=== PATIENT | male | born 1950 | race Caucasian/White ===

== ENCOUNTER 2018-04-21 11:06 | Inpatient (IN) ==
[2018-04-21] MEDS ORDERED: SODIUM CHLORIDE 0.9% 1000ML 1,000 ML IV SCH (11:45)
[2018-04-21 11:54] LABS: Appearance Urine Clear (Clear); Bilirubin Urine Negative (Negative); Blood Urine Negative (Negative); Color Urine Yellow; Glucose Urine UA Negative (Negative); Ketones Urine 1+ (Negative); Leukocyte Esterase Urine Negative (Negative); Nitrite Urine Negative (Negative); Protein Urine Negative (Negative); Specific Gravity Urine 1.022 (1.000-1.030); Urobilinogen Urine Negative (Negative); pH Urine 8.5 (4.5-7.5)
[2018-04-21 11:55] LABS: Basophils # (auto) 0.02 K/uL (0-0.2); Basophils % (auto) 0.2 %; Eosinophils # (auto) 0.01 K/uL (0-0.5); Eosinophils % (auto) 0.1 %; Hematocrit (blood only) 44.3 % (42-52); Hemoglobin 15.4 g/dL (14.0-18.0); Immature Granulocytes # (auto) 0.02 K/uL (0.00-0.02); Immature Granulocytes % (auto) 0.2 %; Lymphocytes # (auto) 0.62 K/uL (1.2-3.4); Lymphocytes % (auto) 5.6 %; Mean Corpuscular Hgb Conc 34.8 g/dL (32-36); Mean Corpuscular Volume 84.1 fL (80-100); Mean Platelet Volume 10.1 fL (7.4-10.4); Monocytes % (auto) 4.5 %; Neutrophils # (auto) 9.92 K/uL (1.4-6.5); Neutrophils % (auto) 89.4 %; Platelet Count 258 K/uL (130-400); RDW Coefficient of Variation 13.4 % (11.5-14.5); RDW Standard Deviation 40.9 fL (36.4-46.3); Red Blood Count 5.27 M/uL (4.7-6.1); White Blood Count 11.09 K/uL (4.8-10.8)
--- NOTE | 2018-04-21 12:06 | Emergency Department Note ---
Entered by Ladi Perdomo acting as a scribe for Sampson Rojas DO History of Present Illness General Chief complaint: Abdominal Pain Stated complaint: STOMACH PAIN Source: patient History of Present Illness Provider complaint: abdominal pain Onset (ago): hour(s) (0530 this morning) Location: abdomen Radiation: non-radiation Pain Consistency: + constant Maximum Pain Intensity: 5 Quality: + other (pain) Associated symptoms: + denies other symptoms (denies bloody urine) and + nausea/vomiting; no chest pain The patient is a 67 year old male who presents to the Emergency Room with complaints of constant abdominal pain beginning at 0530 this morning. He states that the patient does not radiate anywhere. He reports that he vomited 3 times and states that this did not alleviate his pain. The patient denies having any chest pain or bloody urine. He reports a history of atrial flutter and states that he takes a low dose Aspirin and states that this is the only medication he currently takes. The patient states that he was stopped on blood thinners and r eports that he had an ablation. The patient also reports a history of a bilateral knee surgery. He denies a history of an appendectomy or cholecystectomy. The patient states that he went to Urgent Care today. Home Medications Home Medications Medication Instructions Recorded Confirmed Type aspirin [Aspirin Low Dose] 81 mg PO DAILY 04/21/18 04/21/18 History Allergies Allergy/AdvReac Type Severity Reaction Status Date / Time tetanus toxoid, adsorbed Allergy Intermediate SYNCOPE Verified 04/21/18 18:30 Past Med/Surg History Social History Preferred Language: [place] Communication Ability: Effective Hospice Nurse Practitioner Required: No Beliefs That Will Affect Care: None Current Living Situation: Family Other Information That Helps Us Care for You: No Feels Safe at Home: Yes Smoking Status: Never smoker Hx Alcohol Use: Yes Hx Substance Use: No Review of Systems See HPI for pertinent positives & negatives. and A total of 10 systems reviewed and were otherwise negative Physical Exam Vital Signs Vital Signs - 24 hr 04/21/18 11:47 04/21/18 12:49 04/21/18 14:30 Temperature Temperature Source Pulse Rate Pulse Rate [Right Finger] 84 80 Pulse Rate from SpO2 Sensor Pulse Rhythm [Right Finger] Pulse Strength [Right Finger] Respiratory Rate 16 18 Respiratory Effort / Characteristics Non-Labored Non-Labored Respiratory Depth Normal Normal Respiratory Pattern Blood Pressure Blood Pressure [Left Arm] 137/67 148/89 H Blood Pressure Mean Blood Pressure Mean [Left Arm] 90 108 Blood Pressure Position [Left Arm] Pulse Oximetry 98 100 100 Oxygen Delivery Method Room Air Room Air Room Air Oxygen Flow Rate 04/21/18 15:05 04/21/18 16:55 04/21/18 16:56 Temperature 36.9 C 36.9 C Temperature Source Oral Temporal Artery Scan Pulse Rate 93 H 92 H Pulse Rate [Right Finger] 70 92 H Pulse Rate from SpO2 Sensor 103 H 93 H Pulse Rhythm [Right Finger] Regular Pulse Strength [Right Finger] Respiratory Rate 18 15 25 H Respiratory Effort / Characteristics Non-Labored Spontaneous Non-Labored Spontaneous Respiratory Depth Normal Normal Respiratory Pattern Regular Blood Pressure 94/83 L Blood Pressure [Left Arm] 143/84 H 133/74 Blood Pressure Mean 86 Blood Pressure Mean [Left Arm] 103 93 Blood Pressure Position [Left Arm] Semi-fowlers Lying Pulse Oximetry 99 100 100 Oxygen Delivery Method Oxymask Oxygen Flow Rate 10 04/21/18 16:57 04/21/18 17:00 04/21/18 17:01 Temperature Temperature Source Pulse Rate 89 85 86 Pulse Rate [Right Finger] Pulse Rate from SpO2 Sensor 88 87 85 Pulse Rhythm [Right Finger] Pulse Strength [Right Finger] Respiratory Rate 16 24 15 Respiratory Effort / Characteristics Respiratory Depth Respiratory Pattern Blood Pressure 133/74 131/79 Blood Pressure [Left Arm] Blood Pressure Mean 93 96 Blood Pressure Mean [Left Arm] Blood Pressure Position [Left Arm] Pulse Oximetry 100 99 100 Oxygen Delivery Method Oxygen Flow Rate 04/21/18 17:05 04/21/18 17:10 04/21/18 17:15 Temperature Temperature Source Pulse Rate 81 76 75 Pulse Rate [Right Finger] Pulse Rate from SpO2 Sensor 82 76 75 Pulse Rhythm [Right Finger] Pulse Strength [Right Finger] Respiratory Rate 18 15 15 Respiratory Effort / Characteristics Respiratory Depth Respiratory Pattern Blood Pressure 126/71 126/73 Blood Pressure [Left Arm] Blood Pressure Mean 89 90 Blood Pressure Mean [Left Arm] Blood Pressure Position [Left Arm] Pulse Oximetry 100 100 99 Oxygen Delivery Method Oxygen Flow Rate 04/21/18 17:17 04/21/18 17:20 04/21/18 17:25 Temperature 37.2 C 37.2 C Temperature Source Temporal Artery Scan Pulse Rate 74 75 Pulse Rate [Right Finger] 73 Pulse Rate from SpO2 Sensor 74 75 Pulse Rhythm [Right Finger] Regular Pulse Strength [Right Finger] Respiratory Rate 16 11 L 16 Respiratory Effort / Characteristics Non-Labored Spontaneous Respiratory Depth Normal Respiratory Pattern Regular Blood Pressure 120/70 126/73 Blood Pressure [Left Arm] 125/69 Blood Pressure Mean 86 90 Blood Pressure Mean [Left Arm] 87 Blood Pressure Position [Left Arm] Lying Pulse Oximetry 98 98 98 Oxygen Delivery Method Nasal Cannula Nasal Cannula Oxygen Flow Rate 2 2 04/21/18 17:35 04/21/18 18:00 04/21/18 18:30 Temperature 37.2 C 36.9 C 36.7 C Temperature Source Oral Oral Pulse Rate 75 Pulse Rate [Right Finger] 72 75 Pulse Rate from SpO2 Sensor 75 Pulse Rhythm [Right Finger] Pulse Strength [Right Finger] Respiratory Rate 16 20 18 Respiratory Effort / Characteristics Non-Labored Spontaneous Non-Labored Spontaneous Respiratory Depth Normal Normal Respiratory Pattern Regular Regular Blood Pressure 126/73 Blood Pressure [Left Arm] 120/69 123/74 Blood Pressure Mean 90 Blood Pressure Mean [Left Arm] 86 90 Blood Pressure Position [Left Arm] Pulse Oximetry 98 93 94 Oxygen Delivery Method Nasal Cannula Nasal Cannula Room Air Oxygen Flow Rate 2 2 04/21/18 18:59 04/21/18 19:11 04/21/18 20:01 Temperature 36.6 C 36.5 C 36.7 C Temperature Source Oral Oral Oral Pulse Rate Pulse Rate [Right Finger] 73 66 68 Pulse Rate from SpO2 Sensor Pulse Rhythm [Right Finger] Pulse Strength [Right Finger] Respiratory Rate 20 17 16 Respiratory Effort / Characteristics Non-Labored Spontaneous Respiratory Depth Normal Normal Respiratory Pattern Regular Blood Pressure Blood Pressure [Left Arm] 129/73 135/79 137/60 Blood Pressure Mean Blood Pressure Mean [Left Arm] 91 97 85 Blood Pressure Position [Left Arm] Lying Lying Pulse Oximetry 95 94 95 Oxygen Delivery Method Room Air Room Air Room Air Oxygen Flow Rate 04/21/18 21:00 04/21/18 22:55 04/22/18 03:27 Temperature 36.7 C 36.5 C 36.6 C Temperature Source Oral Oral Oral Pulse Rate Pulse Rate [Right Finger] 86 85 86 Pulse Rate from SpO2 Sensor Pulse Rhythm [Right Finger] Regular Regular Pulse Strength [Right Finger] Normal Normal Respiratory Rate 18 16 16 Respiratory Effort / Characteristics Non-Labored Spontaneous Respiratory Depth Normal Normal Normal Respiratory Pattern Regular Blood Pressure Blood Pressure [Left Arm] 136/69 123/70 118/58 L Blood Pressure Mean Blood Pressure Mean [Left Arm] 91 87 78 Blood Pressure Position [Left Arm] Lying Lying Pulse Oximetry 95 96 96 Oxygen Delivery Method Room Air Room Air Room Air Oxygen Flow Rate 04/22/18 07:04 Temperature 36.9 C Temperature Source Oral Pulse Rate Pulse Rate [Right Finger] 56 L Pulse Rate from SpO2 Sensor Pulse Rhythm [Right Finger] Pulse Strength [Right Finger] Respiratory Rate 16 Respiratory Effort / Characteristics Respiratory Depth Respiratory Pattern Blood Pressure Blood Pressure [Left Arm] 138/72 Blood Pressure Mean Blood Pressure Mean [Left Arm] 94 Blood Pressure Position [Left Arm] Lying Pulse Oximetry 93 Oxygen Delivery Method Room Air Oxygen Flow Rate GENERAL: Patient is awake alert in no acute distress patient is resting c omfortably and showing no signs of anxiety EYES: The conjunctivae are clear. The pupils are round and reactive. EARS, NOSE, MOUTH AND THROAT: The nose is without any evidence of any deformity. Mucous membranes are moist tongue is midline NECK: The neck is nontender and supple. RESPIRATORY: Normal respiratory effort is noted there is no evidence of wheezing rhonchi or rales CARDIOVASCULAR: Regular rate and rhythm noted there no murmurs rubs or gallops normal S1 normal S2 GASTROINTESTINAL: The abdomen is nondistended and soft. There is significant epigastric supraumbilical and right upper quadrant tenderness to palpation. There is no guarding or rigidity. BACK: No midline tenderness or or step-off noted range of motion in flexion extension as well as rotation no signs of muscle spasm noted MUSCULOSKELETAL/EXTREMITIES: There is no evidence of gross deformity full range of motion is noted in the hips and shoulders SKIN: There is no obvious evidence of any rash. There are no petechiae, pallor or cyanosis noted. NEUROLOGIC: Patient is awake alert and oriented x3 strength is symmetric patellar reflexes are 2+ bilaterally Course 1153: Past medical records reviewed. The patient was evaluated in room A10, and a complete history and physical examination were performed. 1340: I updated the patient who verbalized agreement and understanding of the treatment plan. 1351: I discussed the patient's case with Aly Ramon PA-C General Surgery who said that he will see the patient. 1407: I spoke with Aly Ramon PA-C who said that he and Dr. Aragon will evaluate the patient for further management. Consultations Consultation #1: Aly Ramon PA-C General Surgery Time: 13:51 Administered Medications Aspirin (Ecotrin Ectab) 81 mg PO DAILY [place] Stop: 05/22/18 08:59 Last Admin: 04/22/18 09:19 Dose: 81 mg Documented by: [id number] Lactated Ringer's (Lr) 1,000 mls @ 125 mls/hr IV .Q8H [place] Stop: 05/21/18 19:17 Last Admin: 04/22/18 10:12 Dose: 125 mls/hr Documented by: [id number] Infusion: 04/22/18 10:08 Dose: 125 mls/hr Documented by: [id number] Infusion: 04/22/18 05:29 Dose: 125 mls/hr Documented by: [id number] Admin: 04/22/18 02:08 Dose: 125 mls/hr Documented by: [id number] Infusion: 04/22/18 02:08 Dose: 125 mls/hr Documented by: [id number] Admin: 04/21/18 19:24 Dose: 125 mls/hr Documented by: [id number] Discontinued Medications Bupivacaine HCl (Marcaine 0.5% Mpf) Confirm Administered Dose 30 ml .ROUTE .STK- MED ONE Stop: 04/21/18 15:39 Last Admin: 04/21/18 18:54 Dose: Not Given Documented by: [id number] Bupivacaine HCl/Epinephrine Bitart (Sensorcaine/Epinephrine 0.5% Mpf 1:200,000) Confirm Administered Dose 30 ml .ROUTE .STK-MED ONE Stop: 04/21/18 15:42 Last Admin: 04/21/18 16:32 Dose: 14 ml Documented by: [id number] Sodium Chloride (Nss 1000ml) 1,000 mls @ 999 mls/hr IV .Q1H1M [place] Stop: 04/21/18 12:45 Last Infusion: 04/21/18 12:51 Dose: 0 mls/hr Documented by: [id number] Admin: 04/21/18 11:50 Dose: 999 mls/hr Documented by: [id number] Lactated Ringer's (Lr) 1,000 mls @ 80 mls/hr IV .[id number] [place] Stop: 05/21/18 15:44 Last Infusion: 04/21/18 15:45 Dose: 0 mls/hr Documented by: [id number] Admin: 04/21/18 15:30 Dose: 80 mls/hr Documented by: [id number] Cefoxitin Sodium 2,000 mg/ (Dextrose) 60 mls @ 100 mls/hr IV ONCE STA Stop: 04/21/18 17:07 Last Infusion: 04/21/18 16:36 Dose: 0 mls/hr Documented by: [id number] Admin: 04/21/18 16:00 Dose: 100 mls/hr Documented by: [id number] Ioversol (Optiray 320 100ml) 94 ml IV ONCE PRN PRN Reason: Interaction Checking Stop: 04/25/18 12:45 Last Admin: 04/21/18 12:47 Dose: 94 ml Documented by: [id number] Morphine Sulfate (Morphine Sulfate) 4 mg IV Q15M PRN PRN Reason: Pain Stop: 05/05/18 12:31 Last Admin: 04/21/18 13:54 Dose: 4 mg Documented by: [id number] Admin: 04/21/18 13:37 Dose: 4 mg Documented by: [id number] Ondansetron HCl (Zofran) Confirm Administered Dose 4 mg .ROUTE .STK-MED ONE Stop: 04/21/18 12:31 Last Admin: 04/21/18 12:32 Dose: 4 mg Documented by: [id number] Ondansetron HCl (Zofran) 4 mg IV NOW STA Stop: 04/21/18 12:33 Last Admin: 04/21/18 13:37 Dose: Not Given Documented by: [id number] Ondansetron HCl (Zofran) 4 mg IV NOW STA Stop: 04/21/18 14:04 Last Admin: 04/21/18 14:04 Dose: 4 mg Documented by: [id number] Medical Decision Making Differential Diagnosis Differential diagnosis: Etiologies such as biliary colic, cholecystitis, hepatitis, pancreatitis, cardiac disease, pancreatitis, gastritis, peptic ulcer disease, appendicitis, cystitis, diverticulitis, mesenteric ischemia, inflammatory bowel disease, ileus, bowel obstruction, testicular torsion, aortic pathology, shingles, as well as others were considered. Medical Records Attestation: I reviewed the patient's medical records. Home Medications Current Medication List: was personally reviewed by me Laboratory Data Attestation: I reviewed the patient's lab results. Result diagrams: 04/22/18 07:02 04/22/18 07:02 Lab Results 04/21/18 04/21/18 04/21/18 Range/Units 11:31 11:42 11:42 WBC 11.09 H (4.8-10.8) K/uL RBC 5.27 (4.7-6.1) M/uL Hgb 15.4 (14.0-18.0) g/dL Hct 44.3 (42-52) % MCV 84.1 (80-100) fL MCH 29.2 (25-34) pg MCHC 34.8 (32-36) g/dL RDW Std Deviation 40.9 (36.4-46.3) fL RDW Coeff of Trish 13.4 (11.5-14.5) % Plt Count 258 (130-400) K/uL MPV 10.1 (7.4-10.4) fL Immature Gran % (Auto) 0.2 % Neut % (Auto) 89.4 % Lymph % (Auto) 5.6 % [place] % (Auto) 4.5 % Eos % (Auto) 0.1 % Baso % (Auto) 0.2 % Immature Gran # (Auto) 0.02 (0.00-0.02) K/uL Neut # (Auto) 9.92 H (1.4-6.5) K/uL Lymph # (Auto) 0.62 L (1.2-3.4) K/uL [place] # (Auto) 0.50 (0.11-0.59) K/uL Eos # (Auto) 0.01 (0-0.5) K/uL Baso # (Auto) 0.02 (0-0.2) K/uL Sodium 141 (136-145) mmol/L Potassium 4.0 (3.5-5.1) mmol/L Chloride 107 (98-107) mmol/L Carbon Dioxide 28 (21-32) mmol/L Anion Gap 5.0 (3-11) BUN 15 (7-18) mg/dl Creatinine 0.88 (0.6-1.4) mg/dl Est Cr Clr Drug Dosing 79.9 ml/min Est GFR ( Amer) 103.7 Est GFR (Non-Af Amer) 89.5 BUN/Creatinine Ratio 16.6 (10-20) Glucose 133 H (70-99) mg/dl Calcium 9.1 (8.5-10.1) mg/dl Total Bilirubin 0.7 (0.2-1) mg/dl AST 26 (15-37) U/L ALT 27 (12-78) U/L Alkaline Phosphatase 55 (45-117) U/L Total Protein 7.3 (6.4-8.2) gm/dl Albumin 4.1 (3.4-5.0) gm/dl Globulin 3.2 (2.5-4.0) gm/dl Albumin/Globulin Ratio 1.3 (0.9-2) Lipase 91 (73-393) U/L Urine Color Yellow Urine Appearance Clear (Clear) Urine pH 8.5 H (4.5-7.5) Ur Specific [place] 1.022 (1.000-1.030) Urine Protein Negative (Negative) Urine Glucose (UA) Negative (Negative) Urine Ketones 1+ H (Negative) Urine Blood Negative (Negative) Urine Nitrite Negative (Negative) Urine Bilirubin Negative (Negative) Urine Urobilinogen Negative (Negative) Ur Leukocyte Esterase Negative (Negative) Hepatitis C Ab Screen (Neg) 04/22/18 04/22/18 04/22/18 Range/Units 07:02 07:02 07:02 WBC 12.37 H (4.8-10.8) K/uL RBC 4.86 (4.7-6.1) M/uL Hgb 14.0 (14.0-18.0) g/dL Hct 41.4 L (42-52) % MCV 85.2 (80-100) fL MCH 28.8 (25-34) pg MCHC 33.8 (32-36) g/dL RDW Std Deviation 43.2 (36.4-46.3) fL RDW Coeff of Trish 13.9 (11.5-14.5) % Plt Count 225 (130-400) K/uL MPV 10.3 (7.4-10.4) fL Immature Gran % (Auto) 0.2 % Neut % (Auto) 77.8 % Lymph % (Auto) 10.9 % [place] % (Auto) 10.8 % Eos % (Auto) 0.1 % Baso % (Auto) 0.2 % Immature Gran # (Auto) 0.03 H (0.00-0.02) K/uL Neut # (Auto) 9.61 H (1.4-6.5) K/uL Lymph # (Auto) 1.35 (1.2-3.4) K/uL [place] # (Auto) 1.34 H (0.11-0.59) K/uL Eos # (Auto) 0.01 (0-0.5) K/uL Baso # (Auto) 0.03 (0-0.2) K/uL Sodium 142 (136-145) mmol/L Potassium 3.9 (3.5-5.1) mmol/L Chloride 109 H (98-107) mmol/L Carbon Dioxide 27 (21-32) mmol/L Anion Gap 6.0 (3-11) BUN 11 (7-18) mg/dl Creatinine 0.77 (0.6-1.4) mg/dl Est Cr Clr Drug Dosing 91.3 ml/min Est GFR ( Amer) 109.6 Est GFR (Non-Af Amer) 94.6 BUN/Creatinine Ratio 14.4 (10-20) Glucose 102 H (70-99) mg/dl Calcium 8.2 L (8.5-10.1) mg/dl Total Bilirubin (0.2-1) mg/dl AST (15-37) U/L ALT (12-78) U/L Alkaline Phosphatase (45-117) U/L Total Protein (6.4-8.2) gm/dl Albumin (3.4-5.0) gm/dl Globulin (2.5-4.0) gm/dl Albumin/Globulin Ratio (0.9-2) Lipase (73-393) U/L Urine Color Urine Appearance (Clear) Urine pH (4.5-7.5) Ur Specific [place] (1.000-1.030) Urine Protein (Negative) Urine Glucose (UA) (Negative) Urine Ketones (Negative) Urine Blood (Negative) Urine Nitrite (Negative) Urine Bilirubin (Negative) Urine Urobilinogen (Negative) Ur Leukocyte Esterase (Negative) Hepatitis C Ab Screen Neg (Neg) Imaging Data Radiologist's Impression: Radiology results as stated below per my review and the radiologist's interpretation: XR chest 1V portable HISTORY: Atypical chest pain COMPARISON: None. FINDINGS: The lungs are clear. Cardiac silhouette is normal in size. No pleural effusions. No pneumothorax. IMPRESSION: No acute process. Electronically signed by: Shamir Garg M.D. 04/21/2018 1:[address] SCAN OF THE ABDOMEN AND PELVIS WITH IV CONTRAST CLINICAL HISTORY: Upper abdominal pain. COMPARISON STUDY: No priors. TECHNIQUE: Following the IV administration of 94 cc of Optiray 320, CT scan of the abdomen and pelvis is performed from the lung bases to the proximal femora. Images are reviewed in the axial, sagittal, and coronal planes. IV contrast was administered without complication. A dose lowering technique was utilized adhering to the principles of ALARA. CT DOSE: 268.95 mGy.cm FINDINGS: Lung bases: The heart is normal in size and without pericardial effusion. A fat- containing Bochdalek hernia is noted at the right lung base. There is no airspace consolidation or pleural effusion. There are 3 right lower lobe pulmonary nodules measuring up to 5 mm seen on images #51, #57, and #61. A 7 mm pleural-based nodule at the left lung base is seen on image #58. Liver: The contrast-enhanced liver is normal in size, contour, and attenuation. There is no intrahepatic biliary ductal dilatation. The hepatic veins and portal veins are patent. Gallbladder: Unremarkable. Spleen: Normal in size and attenuation. Pancreas: Unremarkable. Adrenal glands: Unremarkable. Kidneys: The contrast enhanced kidneys are normal in size and without hydronephrosis. The kidneys enhance symmetrically. Abdominal vasculature: The abdominal aorta is normal in course and caliber noting scattered foci of atherosclerotic calcification. Bowel: There are numerous loops of thick-walled and edematous small bowel in the pelvis with significant surrounding edema, interloop fluid, and engorgement of the mesenteric veins. There are 2 transition points suggested in this region (axial images #244 and #256), and the appearance is highly concerning for a closed loop type obstruction. Gastric small bowel is mildly distended and fluid- filled with loops measuring up to 3 cm. There is no pneumatosis intestinalis or portal venous gas. The appendix is not identified. Peritoneum: There is trace abdominopelvic ascites. No intraperitoneal free air is seen. Lymphadenopathy: None. Pelvic viscera: The prostate gland is enlarged measuring 5.7 cm in transverse diameter. There is median lobe hypertrophy. The bladder wall is mildly thickened and trabeculated indicating chronic outlet obstruction. Skeletal structures: There is mild lumbar sacral spondylosis. No lytic or blastic lesions are seen. IMPRESSION: 1. There are numerous loops of thick-walled and edematous small bowel in the pelvis with surrounding edema, interloop fluid, venous congestion, and a small volume of abdominopelvic ascites. 2 transition points are suggested and the appearance is highly concerning for a closed loop obstruction. These loops are at high risk for ischemia. Surgical consultation is advised. 2. No intraperitoneal free air is seen. There is no pneumatosis intestinalis or portal venous gas. 3. Pulmonary and pleural-based nodules are seen at both lung bases and measure up to 7 mm. Follow-up with a dedicated chest CT in 6 months time is recommended for further assessment of the thorax. 4. Additional findings as above. Electronically signed by: Timbo Gordon M.D. 04/21/2018 1:29 PM Blood Pressure Blood Pressure Findings: Normal blood pressure MDM Narrative The patient is a 67-year-old male who presented to the emergency department for an evaluation of abdominal discomfort. The patient was experiencing supraumbilical tenderness which was very severe in nature. The patient had some guarding to palpation. I discussed the patient's laboratory and radiographic studies with him. His CAT scan appear to be consistent with a closed and obstruction. For this reason I discussed his case with the on-call general surgical group. They have evaluated the patient in the emergency department and felt that he was a good candidate for surgical intervention. The patient was reevaluated multiple times. He was treated with IV fluids IV pain medicine and IV antiemetics but still had significant pain. He was agreeable to surgical management. Impression & Plan SBO (small bowel obstruction), Abdominal pain, Nausea & vomiting Discharge Plan Visit Data *Final* Discharge Date/Time: 04/21/18 15:11 Chief Complaint: Abdominal Pain Stated Complaint: STOMACH PAIN ED Provider: Sampson Rojas Discharge Problem: SBO (small bowel obstruction), Abdominal pain, Nausea & vomiting Patient Disposition: Still a Patient Discharge Instructions Interventions: ED Discharge Assessment Last Done: 04/21/18 15:11 Discharge Problem: Abdominal pain Qualifiers: Abdominal location: unspecified location Qualified Code(s): R10.9 - Unspecified abdominal pain Nausea & vomiting Qualifiers: Vomiting type: unspecified Vomiting Intractability: unspecified Qualified Code(s): R11.2 - Nausea with vomiting, unspecified The scribe's documentation has been prepared under my direction and personally reviewed by me in its entirety. I confirm that the note above accurately reflects all work, treatment, procedures, and medical decision making performed by me.
[2018-04-21 12:12] LABS: Albumin Level 4.1 gm/dl (3.4-5.0); BUN Creatinine Ratio 16.6 (10-20); Calcium 9.1 mg/dl (8.5-10.1); Creatinine Clr Calc Pharmacy 79.9 ml/min; Est GFR (African American) 103.7; Est GFR (Non-African American) 89.5
[2018-04-21 12:15] LABS: Albumin Globulin Ratio 1.3 (0.9-2); Bilirubin,Total 0.7 mg/dl (0.2-1); Globulin 3.2 gm/dl (2.5-4.0); Total Protein 7.3 gm/dl (6.4-8.2)
[2018-04-21] MEDS ORDERED: ONDANSETRON INJ 2 MG/ML 2 ML VIAL ONE ×2 (12:30→14:33)
[2018-04-21] MEDS ORDERED: ONDANSETRON INJ 2 MG/ML 2 ML VIAL IV STA ×2 (12:32→14:03)
[2018-04-21] MEDS ORDERED: IOVERSOL 100ml IV PRN (12:46)
--- NOTE | 2018-04-21 13:06 | XRay Report ---
XR chest 1V portable HISTORY: Atypical chest pain COMPARISON: None. FINDINGS: The lungs are clear. Cardiac silhouette is normal in size. No pleural effusions. No pneumot horax. IMPRESSION: No acute process. Electronically signed by: Shamir Garg M.D. 04/21/2018 1:05 PM
--- NOTE | 2018-04-21 13:31 | CT Scan Report ---
CT SCAN OF THE ABDOMEN AND PELVIS WITH IV CONTRAST CLINICAL HISTORY: Upper abdominal pain. COMPARISON STUDY: No priors. TECHNIQUE: Following the IV administration of 94 cc of Optiray 320, CT scan of the abdomen and pelvi s is performed from the lung bases to the proximal femora. Images are reviewed in the axial, sagittal , and coronal planes. IV contrast was administered without complication. A dose lowering technique wa s utilized adhering to the principles of ALARA. CT DOSE: 268.95 mGy.cm FINDINGS: Lung bases: The heart is normal in size and without pericardial effusion. A fat-containing Bochdalek hernia is noted at the right lung base. There is no airspace consolidation or pleural effusion. There are 3 right lower lobe pulmonary nodules measuring up to 5 mm seen on images #51, #57, and #61. A 7 mm pleural-based nodule at the left lung base is seen on image #58. Liver: The contrast-enhanced liver is normal in size, contour, and attenuation. There is no intrahepa tic biliary ductal dilatation. The hepatic veins and portal veins are patent. Gallbladder: Unremarkable. Spleen: Normal in size and attenuation. Pancreas: Unremarkable. Adrenal glands: Unremarkable. Kidneys: The contrast enhanced kidneys are normal in size and without hydronephrosis. The kidneys enh ance symmetrically. Abdominal vasculature: The abdominal aorta is normal in course and caliber noting scattered foci of a therosclerotic calcification. Bowel: There are numerous loops of thick-walled and edematous small bowel in the pelvis with signific ant surrounding edema, interloop fluid, and engorgement of the mesenteric veins. There are 2 transiti on points suggested in this region (axial images #244 and #256), and the appearance is highly concern ing for a closed loop type obstruction. Gastric small bowel is mildly distended and fluid-filled with loops measuring up to 3 cm. There is no pneumatosis intestinalis or portal venous gas. The appendix is not identified. Peritoneum: There is trace abdominopelvic ascites. No intraperitoneal free air is seen. Lymphadenopathy: None. Pelvic viscera: The prostate gland is enlarged measuring 5.7 cm in transverse diameter. There is medi an lobe hypertrophy. The bladder wall is mildly thickened and trabeculated indicating chronic outlet obstruction. Skeletal structures: There is mild lumbar sacral spondylosis. No lytic or blastic lesions are seen. IMPRESSION: 1. There are numerous loops of thick-walled and edematous small bowel in the pelvis with surrounding edema, interloop fluid, venous congestion, and a small volume of abdominopelvic ascites. 2 transition points are suggested and the appearance is highly concerning for a closed loop obstruction. These lo ops are at high risk for ischemia. Surgical consultation is advised. 2. No intraperitoneal free air is seen. There is no pneumatosis intestinalis or portal venous gas. 3. Pulmonary and pleural-based nodules are seen at both lung bases and measure up to 7 mm. Follow-up with a dedicated chest CT in 6 months time is recommended for further assessment of the thorax. 4. Additional findings as above. Electronically signed by: Timbo Gordon M.D. 04/21/2018 1:29 PM
[2018-04-21] MEDS: MoRPHine SULFATE 4 MG/ML 1 ML CARP\\VIAL IV PRN ×2 (13:37→13:54)
--- NOTE | 2018-04-21 14:19 | Surgery Consultation ---
Date of Consultation April 21, 2018 Assessment & Plan (1) SBO (small bowel obstruction): CT and exam consistent with closed loop obstruction, will proceed with emergent exploratory laparotomy. as above. pt seen. some improvement since morphine CT reviewed. agree/appears to be closed loop obstruction and pt with signs of ischemia discussed options/risks ( bleeding/infection/dvt/pe/mi/cva/leaks/injury to other organs etc....) discussed possible bowel resection with surgery as needed questions answered. will proceed with ex-lap /REYES ubaldo. History of Present Illness History of Present Illness 67 y/o male awoke 5:30 this morning with severe abdominal pain. Now crampy and coming in waves. Went to work where he vomited several times and came to the ED. Has been having dry heaves here, has had 8 mg morphine with limited effect on pain. No previous abdominal surgery or symptoms. Allergies Allergy/AdvReac Type Severity Reaction Status Date / Time tetanus toxoid, adsorbed Allergy Intermediate SYNCOPE Unverified 03/14/09 04:28 Home Medications Home Medications Medication Instructions Recorded Confirmed Type aspirin [Aspirin Low Dose] 81 mg PO DAILY 04/21/18 04/21/18 History Patient History Medical History Atrial flutter (Acute) Surgical History H/O cardiac radiofrequency ablation (Resolved) Social History Preferred Language: [place] Feels Safe at Home: Yes Smoking Status: Never smoker Review of Systems Constitutional: no fever and no chills Respiratory: no cough and no chest congestion Cardiovascular: no chest pain Gastrointestinal: + abdominal pain, + nausea and + vomiting Physical Exam Vital Signs (Past 24 Hours): Last Vital Signs Temp 36.7 C 04/21/18 11:12 Pulse 84 04/21/18 12:49 Resp 16 04/21/18 12:49 BP 137/67 04/21/18 12:49 Pulse Ox 100 04/21/18 12:49 Constitutional: + acute distress Respiratory: normal respiratory effort, lungs clear to auscultation Cardiovascular: RRR, no murmur, no edema Gastrointestinal (Abdomen): Inspection/Auscultation: + abdomen distended (minimal) Percussion/Palpation: + abdomen tender and + abdomen firm Results & Data Diagnostic Findings CT SCAN OF THE ABDOMEN AND PELVIS WITH IV CONTRAST CLINICAL HISTORY: Upper abdominal pain. COMPARISON STUDY: No priors. TECHNIQUE: Following the IV administration of 94 cc of Optiray 320, CT scan of the abdomen and pelvis is performed from the lung bases to the proximal femora. Images are reviewed in the axial, sagittal, and coronal planes. IV contrast was administered without complication. A dose lowering technique was utilized adhering to the principles of ALARA. CT DOSE: 268.95 mGy.cm FINDINGS: Lung bases: The heart is normal in size and without pericardial effusion. A fat- containing Bochdalek hernia is noted at the right lung base. There is no airspace consolidation or pleural effusion. There are 3 right lower lobe pulmonary nodules measuring up to 5 mm seen on images #51, #57, and #61. A 7 mm pleural-based nodule at the left lung base is seen on image #58. Liver: The contrast-enhanced liver is normal in size, contour, and attenuation. There is no intrahepatic biliary ductal dilatation. The hepatic veins and portal veins are patent. Gallbladder: Unremarkable. Spleen: Normal in size and attenuation. Pancreas: Unremarkable. Adrenal glands: Unremarkable. Kidneys: The contrast enhanced kidneys are normal in size and without hydronephrosis. The kidneys enhance symmetrically. Abdominal vasculature: The abdominal aorta is normal in course and caliber noting scattered foci of atherosclerotic calcification. Bowel: There are numerous loops of thick-walled and edematous small bowel in the pelvis with significant surrounding edema, interloop fluid, and engorgement of the mesenteric veins. There are 2 transition points suggested in this region (axial images #244 and #256), and the appearance is highly concerning for a closed loop type obstruction. Gastric small bowel is mildly distended and fluid- filled with loops measuring up to 3 cm. There is no pneumatosis intestinalis or portal venous gas. The appendix is not identified. Peritoneum: There is trace abdominopelvic ascites. No intraperitoneal free air is seen. Lymphadenopathy: None. Pelvic viscera: The prostate gland is enlarged measuring 5.7 cm in transverse diameter. There is median lobe hypertrophy. The bladder wall is mildly thickened and trabeculated indicating chronic outlet obstruction. Skeletal structures: There is mild lumbar sacral spondylosis. No lytic or blastic lesions are seen. IMPRESSION: 1. There are numerous loops of thick-walled and edematous small bowel in the pelvis with surrounding edema, interloop fluid, venous congestion, and a small volume of abdominopelvic ascites. 2 transition points are suggested and the appearance is highly concerning for a closed loop obstruction. These loops are at high risk for ischemia. Surgical consultation is advised. 2. No intraperitoneal free air is seen. There is no pneumatosis intestinalis or portal venous gas. 3. Pulmonary and pleural-based nodules are seen at both lung bases and measure up to 7 mm. Follow-up with a dedicated chest CT in 6 months time is recommended for further assessment of the thorax. 4. Additional findings as above. Electronically signed by: Timbo Gordon M.D. 04/21/2018 1:29 PM
--- NOTE | 2018-04-21 14:23 | Anesthesiology Consultation ---
Date of Service April 21, 2018 Assessment & Plan (1) Encounter for pre-operative examination: Chart Review Chart Review: Acceptable Risk for Surgery (Emergency due to SBO) and Patient NOT seen in Pre Admission Testing Consults Requested none ASA [id number] Proposed Anesthesia Anesthesia Type: General Risk / Benefits Reviewed With: PT / POA / Parent / Guardian, Accepts Plan and Informed Consent Obtained NPO Date Last Intake of Fluids: 04/21/18 Time Last Intake of Fluids: 07:00 Date Last Intake of Solids: 04/21/18 Time Last Intake of Solids: 07:00 History Surgery Operation Date: 04/21/18 12:00 Proposed Procedures p Exploratory Laparotomy, Closed Loop Bowel Obstruction - Santosh Aragon, DO Height/Weight Height: 1.78 m Weight: 68.4 kg Allergies Allergy/AdvReac Type Severity Reaction Status Date / Time tetanus toxoid, adsorbed Allergy Intermediate SYNCOPE Unverified 03/14/09 04:28 Medications Home Medications Medication Instructions Recorded Confirmed Last Taken aspirin [Aspirin Low Dose] 81 mg PO DAILY 04/21/18 04/21/18 Unknown Active Medications Generic Name Dose Route Start Last Admin Trade Name Freq PRN Reason Stop Dose Admin Ioversol 94 ml 04/21/18 12:46 04/21/18 12:47 Optiray 320 100ml IV 04/25/18 12:45 94 ml ONCE PRN Administration Interaction Checking Morphine Sulfate 4 mg 04/21/18 12:32 04/21/18 13:54 Morphine Sulfate IV 05/05/18 12:31 4 mg Q15M PRN Administration Pain Past Medical History Medical History Atrial flutter (Acute) Small bowel obstruction Past Surgical History Surgical History H/O cardiac radiofrequency ablation (Resolved) 2015 S/P arthroscopic knee surgery Bilateral Past Anesthesia History No Hx of Anesthesia Complications and No Family Hx of Anesthesia Complications History of PONV No Motion Sickness Screening History of Motion Sickness: No Social History Smoking Status: Never smoker Do You Dip or Chew Tobacco: No Hx Alcohol Use: Yes Alcohol type: beer and wine alcohol intake frequency: a few times a week Hx Substance Use: No Exercise / Class Metabolic Activity II 4-5 Yardwork/Stairs/Walk up hill Physical Exam Vital Signs Last Vital Signs Temp 36.7 C 04/21/18 11:12 Pulse 80 04/21/18 14:30 Resp 18 04/21/18 14:30 BP 148/89 H 04/21/18 14:30 Pulse Ox 100 04/21/18 14:30 ENMT Mouth: + TMJ clicking (Never locks up) Thyromental Distance: > or= 3.5 Finger Breadths Mallampati Class: II Neck normal visual inspection; neck extension not limited Respiratory Auscultation: lungs clear to auscultation bilaterally Cardiovascular Rate/Rhythm: regular rate and regular rhythm Heart Sounds: no murmur Musculoskeletal Spine: normal cervical ROM and no pain with cervical ROM Psychiatric Orientation: alert and oriented x 3 Testing Chest X-Ray Date: 04/21/18 Findings: + NAD FINDINGS: The lungs are clear. Cardiac silhouette is normal in size. No pleural effusions. No pneumothorax. IMPRESSION: No acute process. Laboratory Results 04/21/18 11:42 04/21/18 11:42 Urine Color Yellow 04/21/18 11:31 Urine Appearance Clear (Clear) 04/21/18 11:31 Urine pH 8.5 (4.5-7.5) H 04/21/18 11:31 Ur Specific [place] 1.022 (1.000-1.030) 04/21/18 11:31 Urine Protein Negative (Negative) 04/21/18 11:31 Urine Glucose (UA) Negative (Negative) 04/21/18 11:31 Urine Ketones 1+ (Negative) H 04/21/18 11:31 Urine Nitrite Negative (Negative) 04/21/18 11:31 Ur Leukocyte Esterase Negative (Negative) 04/21/18 11:31
[2018-04-21] MEDS ORDERED: LIDOCAINE HCL 2% 2 ML VIAL/AMP(20MG/ML) INFIL ONE (14:33)
[2018-04-21] MEDS ORDERED: NEOSTIGMINE METHYLSULFATE 5 MG/5 ML SYR ONE (14:33)
[2018-04-21] MEDS ORDERED: PROPOFOL IV EMULSION 10 MG/ML 20 ML VIAL IV ONE (14:33)
[2018-04-21] MEDS ORDERED: GLYCOPYRROLATE 0.2 MG/ML VIAL ONE (14:33)
[2018-04-21] MEDS ORDERED: DEXAMETHASONE SOD INJ 4 MG/ML VIAL ONE (14:33)
[2018-04-21] MEDS ORDERED: fentaNYL citrate 100 MCG/2 ML VIAL ONE ×2 (14:33→16:51)
[2018-04-21] MEDS ORDERED: MIDAZOLAM HCL 1 MG/ML 2ML VIAL ONE (14:33)
[2018-04-21] MEDS ORDERED: ATROPINE SULFATE 0.1 MG/ML 10ML SYR IV PRN (15:01)
[2018-04-21] MEDS ORDERED: ONDANSETRON INJ 2 MG/ML 2 ML VIAL IV PRN ×2 (15:01→18:03)
[2018-04-21] MEDS ORDERED: HYDROmorphone INJ 1 MG/ML SYRINGE IV PRN (15:01)
[2018-04-21] MEDS ORDERED: ePHEDrine sulfate 50 MG/ML AMP IV PRN (15:01)
[2018-04-21] MEDS ORDERED: fentaNYL citrate 100 MCG/2 ML VIAL IV PRN (15:01)
[2018-04-21] MEDS ORDERED: PHENYLEPHRINE 100MCG/ML 5ML SYR IV PRN (15:01)
[2018-04-21] MEDS ORDERED: PROMETHAZINE HCL 12.5 MG in SODIUM CHLORIDE 0.9% 50 ML IV PRN (15:01)
[2018-04-21] MEDS ORDERED: BUPIVACAINE 0.5 % 5 MG/1 ML MPF 30ML VIAL ONE (15:38)
[2018-04-21] MEDS ORDERED: BUPIVACAINE/EPINEPHRINE 0.5% MPF 1:200,000 30 ML VIAL ONE (15:41)
[2018-04-21] MEDS ORDERED: LACTATED RINGER'S 1,000 ML IV SCH (15:45)
[2018-04-21] MEDS ORDERED: cefOXitin 2,000 MG in DEXTROSE 5% 50 ML IV STA (16:32)
[2018-04-21] MEDS ORDERED: SUCCINYLCHOLINE CHLORIDE 20 MG/ML 10 ML VIAL ONE (16:40)
--- NOTE | 2018-04-21 16:45 | Operative Report ---
Post Operative Report Pre & Post Diagnosis Operation Date: 04/21/18 12:00 Pre-Op Diagnosis: small bowel obstruction Post-Op Diagnosis: small bowel obstruction;adhesion Procedure Operation Date: 04/21/18 12:00 Actual Procedures p Exploratory Laparotomy,Release of Small Bowel Obstruction; Enterolysis of Adhesions(Not Applicable) - Santosh Aragon DO Surgeon Santosh Aragon DO Teacher Lip Reading soha Ramon Estimated Blood Loss 3 Findings Consistent with Post-Op Diagnosis Specimens none Description of Procedure After informed consent was obtained the patient was taken to the operating room and placed in supine position. After successful intubation a Panye catheter was placed and the abdomen was sterilely prepped and draped in usual fashion. I began with an infraumbilical incision along the midline with a 10 blade scalpel. This was carried down through the soft tissue using cautery. Anterior rectus fascia was opened using electrocautery. Peritoneum was elevated with hemostats and incised under direct vision using a Metzenbaum scissor. A finger sweep was performed. The incision was then open to both poles using cautery. Once in the abdomen we began running the small bowel. We readily found the closed loop obstruction. It was a single adhesion involving the omentum that had caused a closed loop obstruction. The segment involved was probably 8 cm in total. I simply used cautery to divide the strand of omentum thereby releasing the bowel obstruction. The segment of bowel was engorged red and thickened however there was no infarction. The mesentery was also engorged but I was able to palpate pulses. I did not see an indication at this time for resection of the segment. I ran the bowel in all directions back to the ligament of Treitz as well as distally to the ileocecal valve. No other gross abnormalities were identified. This was a rather small incision but I did manually explore the abdomen and felt or visualized no other abnormalities. We irrigated the lower abdomen. I then closed the fascia using 0-looped PDS in a running fashion. Soft tissue was irrigated and closed using 2-0 Vicryl for mid layers and 4-0 Monocryl for skin. Marcaine was injected around the incision for postoperative analgesia. Sterile dressing was applied. Patient was awaken extubated and transferred recovery in stable condition. My physician parking assistant was present through the entire case. Helped prep the patient. He helped with retraction during my exploration as well as with wound closure and dressing I attest to the content of the Intraoperative Record and any orders documented therein. Any exceptions are noted below.
--- NOTE | 2018-04-21 17:19 | Anesthesiology Progress Note ---
Date of Service April 21, 2018 Anesthesia Post Procedure Vital Signs Vital Signs: Temp Pulse Pulse Resp BP BP Pulse Ox 04/21/18 17:15 75 15 99 04/21/18 17:10 76 15 126/73 100 04/21/18 17:05 81 18 126/71 100 04/21/18 17:01 86 15 131/79 100 04/21/18 17:00 85 24 99 04/21/18 16:57 89 16 133/74 100 04/21/18 16:56 36.9 C 92 H 92 H 25 H 94/83 L 133/74 100 04/21/18 16:55 93 H 15 100 04/21/18 15:05 36.9 C 70 18 143/84 H 99 04/21/18 14:30 80 18 148/89 H 100 04/21/18 12:49 84 16 137/67 100 04/21/18 11:47 98 04/21/18 11:12 36.7 C 78 16 143/86 H 97 Pain Intensity Abdomen: Pain Intensity: 0 Notes Mental Status: alert / awake / arousable Patient Amnestic to Procedure: Yes Nausea / Vomiting: adequately controlled Pain: adequately controlled Airway Patency, RR, SpO2: stable & adequate BP & HR: stable & adequate Hydration State: stable & adequate Anesthetic Complications: no major complications apparent Notes: Awake, doing well, no complaints, VSS.
[2018-04-21] MEDS ORDERED: MoRPHine SULFATE 4 MG/ML 1 ML CARP\\VIAL IV PRN (18:03)
[2018-04-21] MEDS ORDERED: ACETAMINOPHEN 1,000 MG/100 ML VIAL IV PRN (18:03)
[2018-04-21] MEDS: LACTATED RINGER'S 1,000 ML IV SCH (19:24)
[2018-04-22] MEDS: LACTATED RINGER'S 1,000 ML IV SCH ×3 (02:08→18:24)
[2018-04-22 07:22] LABS: Basophils # (auto) 0.03 K/uL (0-0.2); Basophils % (auto) 0.2 %; Eosinophils # (auto) 0.01 K/uL (0-0.5); Eosinophils % (auto) 0.1 %; Hematocrit (blood only) 41.4 % (42-52); Immature Granulocytes # (auto) 0.03 K/uL (0.00-0.02); Immature Granulocytes % (auto) 0.2 %; Lymphocytes # (auto) 1.35 K/uL (1.2-3.4); Lymphocytes % (auto) 10.9 %; Mean Corpuscular Hgb Conc 33.8 g/dL (32-36); Mean Corpuscular Volume 85.2 fL (80-100); Mean Platelet Volume 10.3 fL (7.4-10.4); Monocytes # (auto) 1.34 K/uL (0.11-0.59); Monocytes % (auto) 10.8 %; Neutrophils # (auto) 9.61 K/uL (1.4-6.5); Neutrophils % (auto) 77.8 %; Platelet Count 225 K/uL (130-400); RDW Coefficient of Variation 13.9 % (11.5-14.5); RDW Standard Deviation 43.2 fL (36.4-46.3); Red Blood Count 4.86 M/uL (4.7-6.1); White Blood Count 12.37 K/uL (4.8-10.8)
[2018-04-22 07:58] LABS: BUN Creatinine Ratio 14.4 (10-20); Calcium 8.2 mg/dl (8.5-10.1); Creatinine Clr Calc Pharmacy 91.3 ml/min; Est GFR (African American) 109.6; Est GFR (Non-African American) 94.6; Potassium 3.9 mmol/L (3.5-5.1)
[2018-04-22] MEDS: ASPIRIN 81 MG ECTAB PO SCH (09:19)
--- NOTE | 2018-04-22 12:08 | Surgery Progress Note ---
Date of Service April 22, 2018 Assessment & Plan (1) SBO (small bowel obstruction): POD 1 doing well will start liquids and slowly advance. OOB today possible d/c home tomorrow if he continues to do well. Subjective feeling much better than yesterday. no n/v. small bm Physical Exam Vital Signs (Past 24 Hours): Last Vital Signs Temp 37.1 C 04/22/18 11:48 Pulse 53 L 04/22/18 11:48 Resp 16 04/22/18 11:48 BP 147/85 H 04/22/18 11:48 Pulse Ox 97 04/22/18 11:48 Physical Exam: alert. nad abd: soft. expected tenderness. incision looks good.
[2018-04-22] MEDS: KETOROLAC TROMETHAMINE 15 MG/ML VIAL IV PRN (18:27)
[2018-04-22] MEDS ORDERED: ALUMINUM/MAGNESIUM SUSP 30 ML UDC PO STA (18:58)
--- NOTE | 2018-04-22 19:20 | XRay Report ---
SINGLE VIEW CHEST CLINICAL HISTORY: Chest pressure. FINDINGS: An AP, portable, upright chest radiograph is compared to study dated 04/21/2018. The examina tion is mildly degraded by portable technique and patient rotation. The heart is top normal for proj ection. There is mild elevation of the right hemidiaphragm and bibasilar atelectasis. No airspace con solidation or large pleural effusion is identified. No pneumothorax is seen. The skeletal structures appear osteopenic. The bony thorax is grossly intact. IMPRESSION: No acute cardiopulmonary abnormality. Electronically signed by: Timbo Gordon M.D. 04/22/2018 7:19 PM
[2018-04-23] MEDS: LACTATED RINGER'S 1,000 ML IV SCH ×3 (02:20→10:23)
[2018-04-23 06:26] LABS: Basophils # (auto) 0.04 K/uL (0-0.2); Basophils % (auto) 0.5 %; Eosinophils # (auto) 0.11 K/uL (0-0.5); Eosinophils % (auto) 1.4 %; Hematocrit (blood only) 39.8 % (42-52); Hemoglobin 13.3 g/dL (14.0-18.0); Immature Granulocytes # (auto) 0.01 K/uL (0.00-0.02); Immature Granulocytes % (auto) 0.1 %; Lymphocytes # (auto) 1.34 K/uL (1.2-3.4); Lymphocytes % (auto) 16.6 %; Mean Corpuscular Hgb Conc 33.4 g/dL (32-36); Mean Platelet Volume 10.4 fL (7.4-10.4); Monocytes # (auto) 1.03 K/uL (0.11-0.59); Monocytes % (auto) 12.7 %; Neutrophils # (auto) 5.56 K/uL (1.4-6.5); Neutrophils % (auto) 68.7 %; Platelet Count 192 K/uL (130-400); RDW Coefficient of Variation 14.1 % (11.5-14.5); RDW Standard Deviation 43.9 fL (36.4-46.3); Red Blood Count 4.63 M/uL (4.7-6.1); White Blood Count 8.09 K/uL (4.8-10.8)
[2018-04-23 06:54] LABS: Calcium 8.1 mg/dl (8.5-10.1); Creatinine Clr Calc Pharmacy 97.6 ml/min; Est GFR (African American) 112.7; Est GFR (Non-African American) 97.2; Potassium 3.9 mmol/L (3.5-5.1)
[2018-04-23 07:11] VITALS: BP 124/83; PULSE 60; TEMP 98.1; O2SAT 96
[2018-04-23] MEDS: KETOROLAC TROMETHAMINE 15 MG/ML VIAL IV PRN (07:23)
[2018-04-23] MEDS: ASPIRIN 81 MG ECTAB PO SCH (08:57)
--- NOTE | 2018-04-24 13:05 | Discharge Summary ---
Date of Service April 26, 2018 Discharge Data Consultations 04/21/18 14:46 Consult General Surgery Stat 04/22/18 11:37 Burn CD for patient Routine Procedures Performed Operation Date: 04/21/18 12:00 Actual Procedures p Exploratory Laparotomy,Release of Small Bowel Obstruction; Enterolysis of Adhesions(Not Applicable) - Santosh Aragon DO
--- NOTE | 2018-04-26 02:03 | Discharge Summary ---
PRIMARY DISCHARGE DIAGNOSIS: Small-bowel obstruction from adhesion. PROCEDURE PERFORMED: Exploratory laparotomy with enterolysis and release of small-bowel obstruction. HOSPITAL COURSE: The patient is a 67-year-old male who presented to Emergency Department with severe abdominal pain, recurrent nausea and vomiting that began the morning on awakening. CT was concerning for closed loop obstruction, which was consistent with his exam and symptoms. He was taken to the operating room emergently that afternoon for exploratory laparotomy. We identified an omental band causing the obstruction. The mesentery and segment of small bowel were engorged and thickened but not ischemic. No resection was carried out. He was transferred to the surgical floor, postoperatively. On postoperative day #1, he had a small bowel movement. He was able to begin clear liquids and tolerated advancing diet over the next day. On postoperative day #2, he was tolerating diet and oral analgesics. He was stable for discharge. DISCHARGE INSTRUCTIONS: Discharge home. Follow up with Dr. Aragon in 7-10 days. DISCHARGE MEDICATIONS: Gilbert 1-2 tablets every 6 hours as needed. Continue aspirin 81 mg daily.
== END 2018-04-23 13:52 | disposition home or self-care (01) | DRG 331 ==
LOC: ED 11:06 → ASU 15:11 → 3N 16:46